=== PATIENT | male | born 1945 | race Asian ===

== ENCOUNTER → 2021-02-13 | Outpatient (CLI) | payer MEDICARE | END | disposition home or self-care (01) | LOC: OIH 13:33 | PROVIDERS: ATTEND Internal Medicine | DX: M19.072 Primary osteoarthritis, left ankle and foot (principal); M19.071 Primary osteoarthritis, right ankle and foot; M19.041 Primary osteoarthritis, right hand; M19.042 Primary osteoarthritis, left hand; M65.872 Other synovitis and tenosynovitis, left ankle and foot | CPT/HCPCS: 73630 ==

== ENCOUNTER → 2022-01-19 | Outpatient (CLI) | payer MEDICARE | END | disposition home or self-care (01) | LOC: RAH 14:47 | PROVIDERS: ATTEND Physical Medicine & Rehabilitation | DX: M48.062 Spinal stenosis, lumbar region with neurogenic claudication (principal); M47.817 Spondylosis without myelopathy or radiculopathy, lumbosacral region; M51.26 Other intervertebral disc displacement, lumbar region; Z88.1 Allergy status to other antibiotic agents | CPT/HCPCS: 72148 ==

== ENCOUNTER → 2022-12-16 | Outpatient (CLI) | payer MEDICARE ==
[~2022-12-16] MED LIST: REGADENOSON 0.4 MG/5 ML PF SYG IVP SCH
== END | disposition home or self-care (01) ==
LOC: RAH 08:25
PROVIDERS: ATTEND Internal Medicine Cardiovascular Disease
DX: I20.9 Angina pectoris, unspecified (principal); R06.02 Shortness of breath
CPT/HCPCS: 78452; 96374; 93017; J2785; A9500 ×2

== ENCOUNTER → 2025-06-08 | Outpatient (CLI) | payer MEDICARE ==
--- NOTE | 2025-06-09 15:23 | HMCIMG ---
EXAMINATION: MRI OF THE ABDOMEN WITHOUT CONTRAST. CLINICAL HISTORY: Left upper quadrant pain. COMPARISON: None provided. TECHNIQUE: Multiplanar, multisequence MR images of the abdomen are submitted without contrast administration. FINDINGS: The liver is normal in caliber. No evidence of any altered signal intensity or focal lesion. Intrahepatic bile ducts are normal in caliber. The common bile duct is normal in caliber throughout its course without evidence of choledocholithiasis. The gallbladder is normal in caliber and wall thickness. No calculus. The pancreas is normal in caliber. There is no focal pancreatic abnormality appreciated. There are no peripancreatic changes or fluid collection. The main pancreatic duct is normal in caliber. The spleen is normal in caliber and signal intensity. The adrenal glands are normal in caliber and signal intensity. The kidneys are normal in caliber and demonstrate bilateral renal cortical cysts measuring 0.2 cm to 0.4 cm. The included gastrointestinal tract is normal in caliber and signal intensity. There is no ascites. There is no lymphadenopathy. IMPRESSION: No acute abdominal pathology. Bilateral renal cortical cyst. /[place]
== END | disposition home or self-care (01) ==
LOC: RAH 13:52
PROVIDERS: ATTEND Internal Medicine Gastroenterology
DX: N28.1 Cyst of kidney, acquired (principal); R10.12 Left upper quadrant pain; R74.8 Abnormal levels of other serum enzymes
CPT/HCPCS: 74181